=== PATIENT | male | born 2005 | race African-American/Black ===

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

== ENCOUNTER 2025-09-18 06:07 | Emergency (ER) | payer MEDICAID, SELFPAY ==
[2025-09-18 06:26] VITALS: BP 145/73; PULSE 61; RESP 16; TEMP 36.6; O2SAT 100
--- NOTE | 2025-09-18 06:33 | EDNOTE_ITS ---
ED Psych RME/HPI General Chief Complaint: General Adult/Misc Complain Stated Complaint: ANXIOUS , SELF HARMING Time Seen by Provider: 09/18/25 06:27 Arrival date/time: 09/18/25 06:07 RME / HPI RME / HPI Narrative: See [facility] for Dr. Guerrero's HPI documentation. Related Data Previous Rx's ?Medication ?Instructions ?Recorded prednisolone 15 mg/5 mL oral 5 ml PO QAM #30 mL solution ibuprofen 600 mg tablet 600 mg PO TID PRN pain #30 t abs 12/05/21 ibuprofen 600 mg tablet 600 mg PO Q8H PRN pain #20 t abs 11/06/24 alprazolam 0.5 mg tablet (Xanax) 0.5 mg PO BID PRN anx iety #10 tabs 09/18/25 Allergies Allergy/AdvReac Type Severity Reaction Status Date / Time No Known Allergies Allergy Verified 09/18/25 06:25 Review of Systems Review of Systems Systems Reviewed: All systems reviewed, normal except as documented Past Medical History Past Medical History CARDIAC: Negative Congestive Heart Failure RESPIRATORY: Negative Chronic Obstructive Pulmonary Disease (COPD) GENITOURINARY: Negative Renal Disease ENDOCRINE: Negative Diabetes Mellitus Type 1 or Diabetes Mellitus Type 2 PSYCHO/SOCIAL: Positive Anxiety Social History SMOKING STATUS: Never smoker ED Exam Narrative Physical exam: See [facility] for Dr. Guerrero's physical exam documentation. Course Quality Measures none Orders Category Date Time Status EKG (ED ONLY) *Do not use* NOW Care 09/18/25 06:[address] head/brain wo con Stat Exams 09/18/25 06:34 Completed EKG (ED Only) Stat Exams 09/18/25 06:34 Draft XR chest 1V portable Stat Exams 09/18/25 06:34 Completed Acetaminophen Stat Lab 09/18/25 06:49 Completed Alcohol, Blood Medical Stat Lab 09/18/25 06:49 Completed Amylase Stat Lab 09/18/25 06:49 Completed Bilirubin,Direct Stat Lab 09/18/25 06:49 Completed CBC Stat Lab 09/18/25 06:49 Completed CK [Creatine Kinase] Stat Lab 09/18/25 06:49 Completed CMP [Comprehensive Metabolic Panel] Stat Lab 09/18/25 06:49 Completed Drug Screen,Urine Stat Lab 09/18/25 07:01 Completed Lipase Stat Lab 09/18/25 06:49 Completed Magnesium Stat Lab 09/18/25 06:49 Completed Salicylate Stat Lab 09/18/25 06:49 Completed TSH [Thyroid Stimulating Hormone] Stat Lab 09/18/25 06:49 Completed Troponin I Stat Lab 09/18/25 06:49 Completed UA, C/S IF [Urinalysis, C/S if Indicated] Stat Lab 09/18/25 07:01 Completed ALPRazoLAM [Xanax] Med 09/18/25 06:34 Discontinued 0.5 mg PO X1 ONE Ondansetron Odt [Zofran Odt] Med 09/18/25 06:34 Discontinued 4 mg PO X1 ONE 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 Psych MDM Narrative MDM Narrative:: This section includes all my notes and documentations, including HPI, PE, and ED course. Richar Guerrero MD HPI: 20-year-old male here possible anxiety. Just prior to arrival, he was hitting himself on the head. Mom is present. He reports severe anxiety, possibly related to school today. Currently, he reports no thoughts of hurting self or others. No hallucinations. No other complaints. ROS: All negative except as documented in HPI. Physical Exam: General:? Alert and oriented.? No acute distress.? Eyes:? Conjunctivae and lids clear.? EOMI.? PERRL. ENT:? No signs of head trauma. Neck:? Supple.? No tenderness. Heart:? RRR. Lungs:? No respiratory distress.? Good air movement.? No rhonchi, wheezing, rales.? Chest:? No tenderness. Abdomen:? Soft and nontender.? Normal bowel sounds.? No distension.? No rebound or guarding.? Back:? No tenderness.? Skin:? Warm and dry.? Neuro:? Alert and oriented X 3.? Cranial Nerves II-XII grossly intact.? No per ipheral motor deficits. Musculoskeletal:? All major joints and bones are not tender with no limited ROM. I reviewed all diagnostic test results: My interpretation of the EKG is: Sinus rhythm (61 bpm) with early repolarization. My interpretation of the chest x-ray is: NAD. My review of the CT head report is: No acute findings. Blood tests and urine tests are unremarkable except UDS positive for marijuana. At this point, diagnoses include: Anxiety Treatment here included: Oral Xanax 0.5 mg Oral Zofran 4 mg Evaluation by our ED menagerie caretaker (recommended discharge with outpatient car e) Significant improvement noted. Recommended outpatient follow up as recommended by our ED menagerie caretaker. Based on my best medical judgment, made decision no further evaluation or treatment indicated at this time. Patient understands and agrees to the discharge instructions customized and printed, see below. Discharge Instructions from Dr. Guerrero printed for you: 1. After evaluation, you were treated for anxiety. 2. You were evaluated by our ED menagerie caretaker. Please follow-up with their outpatient recommendation. 3. Xanax as needed. Avoid more than 2-3 times per week, to avoid dependence. 4. See a private doctor on 09/20/2025 for recheck and further care. Ask to review all test results and official radiology reports, to make sure you receive all necessary follow-ups and monitoring. 5. Seek immediate medical care with worsening or with any concerns. Richar Guerrero MD Patient data External records reviewed:: [facility] previous records Clinical information provided by:: patient Social determinants that could affect healthcare access:: mental health Patient has the following chronic illnesses:: Anxiety How is presenting disease/condition affected by chronic disease/condition?: ex acerbated by Evaluation data The following diagnostics were reviewed and interpreted by me:: lab results, radiology exam(s) and EKG tracing(s) (My interpretation of the EKG is: Sinus rhythm (61 bpm) with early repolarization. Richar Guerrero MD) Lab and/or radiology exams considered but not ordered:: None Interpretation Summary: I reviewed all diagnostic test results: My interpretation of the EKG is: Sinus rhythm (61 bpm) with early repolarization. My interpretation of the chest x-ray is: NAD. My review of the CT head report is: No acute findings. Blood tests and urine tests are unremarkable except UDS positive for marijuana. Medications / Prescriptions Medications or Prescriptions considered but not ordered:: None Medication administrations:: Medication Administration History Discontinued Medications Alprazolam (Alprazolam 0.25 Mg Tablet) 0.5 mg PO X1 ONE Stop: 09/18/25 06:35 Last Admin: 09/18/25 07:10 Dose: 0.5 mg Documented By: RHETT Ondansetron HCl (Ondansetron Odt 4 Mg Tabrap) 4 mg PO X1 ONE; Protocol Stop: 09/18/25 06:35 Last Admin: 09/18/25 07:11 Dose: 4 mg Documented By: RHETT Treatment here included: Oral Xanax 0.5 mg Oral Zofran 4 mg Evaluation by our ED menagerie caretaker (recommended discharge with outpatient care) Consultations Consultation(s) initiated? (list below): No Diagnosis Psych Differential Diagnosis: acute psychosis, bipolar disorder, depression, drug-induced psychotic disorder and acute anxiety Most likely diagnosis given after review of the tests above:: Anxiety Admission Indicated Admission indicated?: not indicated Explain why admission is indicated or not indicated:: With significant improvement and no condition needing emergent intervention, there was no indication for admission. Admission Request Was there a request for admission?: No Disposition Plan Disposition Plan: Discharge Discharge Attestation Discharge Attestation: The patient and all family members were given an opportunity to ask questions and understood the discharge instructions. Discharge instructions specifically effects, indications for sooner follow up or return to the emergency department, and the expected course of current diagnosis. Patient condition: Stable Discharge Plan Plan Patient Disposition: HOME (Self Care) Prescriptions/Referrals Prescriptions/Med Rec: New alprazolam [Xanax] 0.5 mg tablet 0.5 mg PO BID PRN (Reason: anxiety) Qty: 10 0RF No Action prednisolone 15 MG/5 ML syrup 5 ml PO QAM Qty: 30 0RF ibuprofen 600 mg tablet 600 mg PO TID PRN (Reason: pain) Qty: 30 0RF ibuprofen 600 mg tablet 600 mg PO Q8H PRN (Reason: pain) Qty: 20 0RF Problem List Clinical Impression: Anxiety Patient/Caregiver Discharge Instructions Discharge Activity: activity as tolerated Education Materials: ED Anxiety Reaction Additional Instructions: Discharge Instructions from Dr. Guerrero printed for you: 1. After evaluation, you were treated for anxiety. 2. You were evaluated by our ED menagerie caretaker. Please follow-up with their outpatient recommendation. 3. Xanax as needed. Avoid more than 2-3 times per week, to avoid dependence. 4. See a private doctor on 09/20/2025 for recheck and further care. Ask to review all test results and official radiology reports, to make sure you receive all necessary follow-ups and monitoring. 5. Seek immediate medical care with worsening or with any concerns. Print Language: Mohawk Stand Alone Forms: Sara Award Info., Work/School Release, Patient Portal Info Letter
--- NOTE | 2025-09-18 06:34 | XR_ITS ---
EXAMINATION: PA chest single view TECHNIQUE: Upright PA chest single view Date and time: September 18, 2025, 0639 hours, comparison April 30, 2016 INDICATIONS: Shortness of breath today. FINDINGS: Normal heart size. Lungs are clear. Osseous structures are intact IMPRESSION: No active disease
--- NOTE | 2025-09-18 06:34 | EKG_ITS ---
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
--- NOTE | 2025-09-18 06:34 | XR_ITS ---
Examination: CT brain head without contrast. 2-D sagittal coronal reconstructions Date and time of exam: September 18, 2025, 0754 hours INDICATIONS: Headaches beginning 2 weeks ago CTDI: vol (mGy): 51.9 DLP: (mGycm): 1002 Technique: Multiple CT axial sections of the brain have been obtained, 5 mm slice thickness. Contrast has not been administered. 2-D sagittal, coronal reconstructions have been obtained Low dose protocols were performed. One or more of the following dose reduction techniques were used; automated exposure control, adjustment of the mA and/or KV according to patient size, use of iterative reconstruction technique. Findings: No significant ventricular enlargement. Intra-axial or extra-axial hemorrhage density is not seen. No mass effect or midline shift Basal cisterns are not remarkable. Fourth ventricle is midline. Cranial vault intact. Impression: Negative for acute hemorrhage, mass effect or midline shift Mild chronic ethmoid sphenoid sinusitis Advise clinical correlation and follow-up accordingly
[2025-09-18 06:59] LABS: Basophils # (Auto) 0.0 Thou/mm3 (0.0-0.2); Basophils % (Auto) 0 % (0-2.5); Eosinophils # (Auto) 0.1 Thou/mm3 (0.0-0.5); Eosinophils % (Auto) 2 % (0-10); Hematocrit 41.8 % (41.0-53.0); Hemoglobin 14.0 g/dL (13.5-16.0); Immature Granulocytes Auto 0.01 Thou/mm3 (0.00-0.00); Lymphocytes # (Auto) 2.0 Thou/mm3 (1.0-4.8); Lymphocytes % (Auto) 30 % (10-50); Mean Corpuscular HGB Conc 33.5 g/dl (31.0-37.0); Mean Corpuscular Hemoglobin 29.4 pg (25.0-35.0); Mean Corpuscular Volume 88 fL (80-100); Monocytes # (Auto) 0.6 Thou/mm3 (0.0-0.8); Monocytes % (Auto) 8 % (0-12); Neutrophils # (Auto) 4.1 Thou/mm3 (1.8-7.7); Neutrophils % (Auto) 60 % (37-80); Nucleated Red Blood Cell # 0.00 Thou/mm3 (0.00-0.00); Nucleated Red Blood Cell % 0 /100 WBC (0); Platelet Count 218 Thou/mm3 (140-440); RDW Standard Deviation 40.5 fL (35.1-43.9); Red Blood Count 4.76 Miln/mm3 (4.50-5.90); White Blood Count 6.9 Thou/mm3 (4.5-11.0)
[2025-09-18] MEDS: ONDANSETRON ODT 4 MG TABRAP PO (07:11)
--- NOTE | 2025-09-18 07:15 | PC.NURSE ---
PT PRESENTS TO ED WITH ANXIOUSNESS. 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 THE TEACHER THEN SAID HE WOULD GET A ZERO IF HE DIDNT HAVE A DOCTORS NOTE. PT DENIES ANY SI, HI OR SELF HARM. HE STATED THAT HE WOKE UP FEELING ANXIOUS AND HIS MIND WAS RACING. HE THEN STIMS AND HITS HIMSELF BECAUSE HE FEELS LIKE HE IS GOING TO BURST. HE STATES THATS HOW HE DEALS WITH HIS ANXIETY. I SPOKE WITH HIM ON DIFFERENT COPING SKILLS AND THAT WE CAN HELP HIM FIND RESOURCES TO HELP. TANVI LONDONO IS AWARE AND WILL BE COMING TO TALK TO HIM. PT ALERT AND ORIENTED, NO OTHER COMPLAINTS AT THIS TIME.
[2025-09-18 07:24] LABS: Acetaminophen < 2.0 mcg/mL (10.0-20.0); Alanine Aminotransferase 12 U/L (10-49); Albumin, Serum 5.2 gm/dL (3.5-5.0); Albumin/Globulin Ratio 2.5 (1.2-2.2); Alcohol, Blood Medical < 3.0 mg/dL (0-10.0); Alkaline Phosphatase 55 U/L (46-116); Amylase 93 U/L (30-118); Anion Gap 11 (7-16); Aspartate Amino Transferase 19 U/L (0-34); BUN/Creatinine Ratio 14 Ratio (12-20); Bilirubin,Direct 0.4 mg/dL (0.0-0.3); Bilirubin,Total 1.1 mg/dL (0.3-1.2); Blood Urea Nitrogen 13 mg/dL (9-23); Calcium 10.0 mg/dL (8.3-10.6); Calcium (Corrected) 10.0 mg/dL (8.5-10.1); Carbon Dioxide 25.8 mMol/L (20.0-31.0); Chloride 105 mMol/L (98-107); Creatine Kinase 140 U/L (34-171); Creatinine (Component) 0.9 mg/dL (0.6-1.3); Globulin 2.1 gm/dL (2.3-3.5); Glucose 110 mg/dL (74-106); Lipase 27 U/L (12-53); Magnesium 2.0 mg/dL (1.6-2.6); Osmolality,Calculated 284 (275-295); Potassium 3.9 mMol/L (3.4-5.1); Salicylate < 3.0 mg/dL; Sodium 142 mMol/L (136-145); Thyroid Stimulating Hormone 0.98 uIU/mL (0.55-4.78); Total Protein 7.3 gm/dL (5.7-8.2); Troponin I < 0.002 ng/mL (0.0-0.045); eGFR > 60 See Note
[2025-09-18 07:32] LABS: Collection Type, Urine Clean Catch; Squamous Epithelial Cell,Urine 0 /hpf (0-5)
[2025-09-18 07:48] LABS: Bilirubin,Urine Negative (Negative); Blood,Urine Negative (Negative); Clarity,Urine Clear (Clear/Hazy); Color,Urine Colorless (Lt Yel-Yel); Culture Indicated,Urine Not Indicated; Glucose, Urine Negative (Negative); Ketones,Urine Negative (Negative); Leukocyte Esterase,Urine Negative (Negative); Nitrite,Urine Negative (Negative); PH,Urine 6.5 (5.0-7.0); Protein,Urine Negative (Neg - Trace); RBC,Urine 1 /hpf (0-3); Specific Gravity,Urine 1.011 (1.001-1.035); Urobilinogen,Urine Negative mg/dL (0.0-1.0); WBC,Urine < 1 /hpf (0-5)
[2025-09-18 08:00] LABS: Amphetamine/Methamp Scrn,U Negative (Negative); Barbiturate Screen,Urine Negative (Negative); Benzodiazepines Screen,Urine Negative (Negative); Benzoylecgonine Screen, Ur Negative (Negative); Fentanyl Screen,Urine Negative (Negative); Opiate Screen,Urine Negative (Negative); THC Screen,Urine Positive (Negative)
[2025-09-18 08:38] VITALS: BP 126/70; PULSE 56; RESP 18; TEMP 36.7; O2SAT 98
--- NOTE | 2025-09-18 08:55 | PC.CC ---
[id number] Perez met with patient [id number] to complete assessment. ASW introduced self, role, and reason for assessment. ASW disclosed limits of confidentiality as well. Patient appeared alert and oriented to self, place, and situation. Patient was pleasant; his mood appeared stressed. His behavior appeared calm and willing to engage in conversation. Patient?s thought process was at times linear and organized. No signs of delusions, paranoid or AVH. Pt denies SI/HI, denies h/o MH hospitalization and reports no MH diagnosis. Pt reported that his mother brought him into the ER because of an anxiety attack. Pt reported that he missed an exam and asked his professor for a makeup, which the professor allowed, but wanted a doctors note that proved his anxiety. Pt reported that although he needs the ER note for school, he admitted to wanting theraputic services as well. Pt reports he often has anxiety and will hit himself on his head when he is extremely stressed. Pt reports he understands that the self injurious behavior isn't normal and wants community resources for mental health. ASW provided community resources to [facility] and [facility] resources as well as the [facility]. Pt was receptive and accepted the resources. Pt reports he is willing to attend counseling services. Pt has an appointment at [facility] and will attend. Pt was provided the 988 and Warm Line information as well. Pt is cleared by SS.
== END 2025-09-18 09:05 | disposition home or self-care (01) ==
LOC: SERX 09:06
PROVIDERS: Emergency Provider Emergency Medicine; PCP Nurse Practitioner Women's Health
DX: F41.9 Anxiety disorder, unspecified (principal)
CPT/HCPCS: 36415; 70450; 71045; 80053; 80307; 80320; 80329; 81001; 82150; 82248; 82550; 83690; 83735; 84443; 84484; 85025; 93005; 96127; 99283; Q0162; A9270; G0480

== ENCOUNTER 2025-10-22 22:11 | Emergency (ER) | payer MEDICAID, SELFPAY ==
[2025-10-22 23:39] VITALS: BP 145/77; PULSE 87; RESP 18; TEMP 36.7; O2SAT 99
--- NOTE | 2025-10-22 23:48 | EKG_ITS ---
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
--- NOTE | 2025-10-22 23:48 | XR_ITS ---
EXAMINATION: PA chest single view TECHNIQUE: Upright PA chest single view Date and time: October 22, 2025, 11:51 p.m. INDICATIONS: Chest pain today. FINDINGS: Normal heart size Lungs are clear. Osseous structures are intact Impression: No active disease
[2025-10-23 00:22] LABS: Basophils # (Auto) 0.0 Thou/mm3 (0.0-0.2); Basophils % (Auto) 1 % (0-2.5); Eosinophils # (Auto) 0.3 Thou/mm3 (0.0-0.5); Eosinophils % (Auto) 5 % (0-10); Hematocrit 37.6 % (41.0-53.0); Hemoglobin 12.6 g/dL (13.5-16.0); Immature Granulocytes Auto 0.01 Thou/mm3 (0.00-0.00); Lymphocytes # (Auto) 3.0 Thou/mm3 (1.0-4.8); Lymphocytes % (Auto) 49 % (10-50); Mean Corpuscular HGB Conc 33.5 g/dl (31.0-37.0); Mean Corpuscular Hemoglobin 29.0 pg (25.0-35.0); Mean Corpuscular Volume 87 fL (80-100); Monocytes # (Auto) 0.6 Thou/mm3 (0.0-0.8); Monocytes % (Auto) 10 % (0-12); Neutrophils # (Auto) 2.3 Thou/mm3 (1.8-7.7); Neutrophils % (Auto) 36 % (37-80); Nucleated Red Blood Cell # 0.00 Thou/mm3 (0.00-0.00); Nucleated Red Blood Cell % 0 /100 WBC (0); Platelet Count 203 Thou/mm3 (140-440); RDW Standard Deviation 39.6 fL (35.1-43.9); Red Blood Count 4.34 Miln/mm3 (4.50-5.90); White Blood Count 6.2 Thou/mm3 (4.5-11.0)
[2025-10-23 00:33] LABS: B-Type Natriuretic Peptide < 20 pg/mL (0-100)
[2025-10-23 00:34] LABS: Alanine Aminotransferase 11 U/L (10-49); Albumin, Serum 4.3 gm/dL (3.5-5.0); Albumin/Globulin Ratio 1.7 (1.2-2.2); Alkaline Phosphatase 63 U/L (46-116); Anion Gap 9 (7-16); Aspartate Amino Transferase 17 U/L (0-34); BUN/Creatinine Ratio 10 Ratio (12-20); Bilirubin,Total 0.3 mg/dL (0.3-1.2); Blood Urea Nitrogen 11 mg/dL (9-23); Calcium 8.9 mg/dL (8.3-10.6); Calcium (Corrected) 8.9 mg/dL (8.5-10.1); Carbon Dioxide 26.7 mMol/L (20.0-31.0); Chloride 110 mMol/L (98-107); Creatinine (Component) 1.1 mg/dL (0.6-1.3); Estimated Creatinine Clearance 96.2 mL/min (>60); Globulin 2.5 gm/dL (2.3-3.5); Glucose 91 mg/dL (74-106); Osmolality,Calculated 289 (275-295); Potassium 4.0 mMol/L (3.4-5.1); Sodium 146 mMol/L (136-145); Total Protein 6.8 gm/dL (5.7-8.2); Troponin I < 0.002 ng/mL (0.0-0.045); eGFR > 60 See Note
[2025-10-23 00:34] LABS: Collection Type, Urine Voided; Squamous Epithelial Cell,Urine 0 /hpf (0-5)
[2025-10-23 00:42] LABS: Bilirubin,Urine Negative (Negative); Blood,Urine Negative (Negative); Clarity,Urine Clear (Clear/Hazy); Color,Urine Lt-Yellow (Lt Yel-Yel); Glucose, Urine Negative (Negative); Ketones,Urine Negative (Negative); Leukocyte Esterase,Urine Negative (Negative); Nitrite,Urine Negative (Negative); PH,Urine 6.5 (5.0-7.0); Protein,Urine Negative (Neg - Trace); RBC,Urine 3 /hpf (0-3); Specific Gravity,Urine 1.020 (1.001-1.035); Urobilinogen,Urine Negative mg/dL (0.0-1.0); WBC,Urine < 1 /hpf (0-5)
--- NOTE | 2025-10-23 01:11 | PD.EDCHEST ---
ED Chest Pain RME/HPI General Chief Complaint: Flu Like Symptoms Stated Complaint: CHEST HURTS, COUGH, SOB Time Seen by Provider: 10/22/25 22:17 Arrival date/time: 10/22/25 22:11 This is a case of 20-year-old male with no medical history came in in the emergency room due to productive cough and nasal congestion for 1 week due to persistence of the symptoms now with shortness of breath and wheezing this patient decided to sought consult here in the emergency room Limitations: no limitations Related Data Previous Rx's ?Medication ?Instructions ?Recorded prednisolone 15 mg/5 mL oral 5 ml PO QAM #30 mL 04/30/16 solution ibuprofen 600 mg tablet 600 mg PO TID PRN pain #30 tabs 12/05/21 ibuprofen 600 mg tablet 600 mg PO Q8H PRN pain #20 tabs 11/06/24 alprazolam 0.5 mg tablet (Xanax) 0.5 mg PO BID PRN anxiety #10 tabs 09/18/25 albuterol sulfate 90 mcg/actuation 1 puff inhalation Q4H PRN 10/23/25 aerosol inhaler (Ventolin HFA) shortness of breath or wheezing #8.5 grams azithromycin 250 mg tablet 250 mg PO QDAY 6 days #6 tabs 10/23/25 benzonatate 200 mg capsule 200 mg PO BID PRN cough #20 caps 10/23/25 prednisone 20 mg tablet 20 mg PO QDAY 5 days #5 tabs 10/23/25 Allergies Allergy/AdvReac Type Severity Reaction Status Date / Time No Known Allergies Allergy Verified 09/18/25 06:25 Review of Systems Review of Systems Systems Reviewed: All systems reviewed, normal except as documented Constitutional Constitutional: Reports system reviewed and no additional complaints, except as documented and Reports as per HPI ENT Ears, Nose, Mouth, and Throat: Reports system reviewed and no additional complaints, except as documented and Reports as per HPI Cardiovascular Cardiovascular: Reports system reviewed and no additional complaints, except as documented and Reports as per HPI Respiratory Respiratory: Reports system reviewed and no additional complaints, except as documented and Reports as per HPI Gastrointestinal Gastrointestinal: Reports system reviewed and no additional complaints, except as documented and Reports as per HPI Neurologic Neurologic: Reports system reviewed and no additional complaints, except as documented and Reports as per HPI Past Medical History Past Medical History CARDIAC: Negative Congestive Heart Failure RESPIRATORY: Negative Chronic Obstructive Pulmonary Disease (COPD) GENITOURINARY: Negative Renal Disease ENDOCRINE: Negative Diabetes Mellitus Type 1 or Diabetes Mellitus Type 2 PSYCHO/SOCIAL: Positive Anxiety Social History SMOKING STATUS: Never smoker ED Exam General Limitations: Present no limitations General appearance: Present alert, in no apparent distress and other (Patient is awake alert oriented not in distress nontoxic looking well-hydrated well nourished) Head Head exam: Present atraumatic, normocephalic and normal inspection Eye Eye exam: Present normal appearance, PERRL and EOMI ENT ENT exam: Present normal exam, normal oropharynx, mucous membranes moist and other (HEENT exam is normal and unremarkable) Neck Neck exam: Present normal inspection, full ROM and trachea midline; Absent tenderness, meningismus, lymphadenopathy or thyromegaly Chest Chest inspection: Present normal inspection and symmetric chest wall rise; Absent tenderness Respiratory Respiratory exam: Present normal lung sounds bilaterally and wheezes (Wheezing both lower lung field no crackles no rales no retraction ); Absent respiratory distress, stridor, accessory muscle use or prolonged expiratory phase Cardiovascular Cardiovascular exam: Present regular rate, normal rhythm and normal heart sounds; Absent bradycardia, tachycardia, irregular rhythm, systolic murmur or diastolic murmur Abdominal Exam Abdominal exam: Present soft and normal bowel sounds; Absent distention, tenderness, guarding, rebound, rigidity, diminished bowel sounds, hyperactive bowel sounds, hypoactive bowel sounds or organomegaly Extremities Exam Extremities exam: Present normal inspection and full ROM Back Exam Back exam: Present normal inspection and full ROM Neurological Exam Neurological exam: Present alert, oriented X3, CN II-XII intact, normal gait and reflexes normal; Absent motor sensory deficit Psychiatric Psychiatric exam: Present normal affect and normal mood Skin Skin exam: Present warm, dry, intact, normal color and other (Excellent skin turgor) Course Quality Measures none Orders Category Date Time Status EKG (ED ONLY) *Do not use* NOW Care 10/22/25 23:48 Completed EKG (ED Only) Stat Exams 10/22/25 23:48 Draft XR chest 1V Stat Exams 10/22/25 23:48 Completed BNP [B-Type Natriuretic Peptide] Stat Lab 10/22/25 23:54 Completed CBC Stat Lab 10/22/25 23:54 Completed CMP [Comprehensive Metabolic Panel] Stat Lab 10/22/25 23:54 Completed Troponin I Stat Lab 10/22/25 23:54 Completed Urinalysis Stat Lab 12/22/25 00:05 Completed Albuterol/Ipratr Rt Tara [Duoneb Rt Tara] Med 10/23/25 01:06 Discontinued 3 ml INH X1 ONE dexAMETHasone INJ [Decadron Inj] Med 10/23/25 01:06 Discontinued 10 mg IM X1 ONE Vital Signs Vital signs: Vital Signs Temperature 98.1 F 10/22/25 23:39 Pulse Rate 87 10/22/25 23:39 Respiratory Rate 18 10/22/25 23:39 Blood Pressure 145/77 H 10/22/25 23:39 Pulse Oximetry (%) 99 10/22/25 23:39 Oxygen Delivery Method Room Air 10/22/25 23:39 Oxygen saturation is 99% in room air Chest Pain MDM Narrative MDM Narrative:: This is a case of 20-year-old male with no medical history came in in the emergency room due to productive cough and nasal congestion for 1 week due to persistence of the symptoms now with shortness of breath and wheezing this patient decided to sought consult here in the emergency room physical examination patient is awake alert oriented not in distress nontoxic looking well-hydrated well nourished HEENT exam is normal and unremarkable lung sounds noted wheezing both lower lung field no crackles no rales no retraction no stridor heart normal rate regular rhythm no murmur no pitting edema the rest of the physical examination neurological exam is normal and unremarkable blood test showed no leukocytosis no anemia kidney and liver function is normal no electrolyte imbalance troponin is negative BNP is normal EKG sinus rhythm no ST elevation or depression chest x-ray is normal based on my physical examination and history patient symptoms suggestive of acute bronchitis no signs and symptoms of cardiac pathology not myocardial infarction or pulmonary embolism patient after giving breathing treatment steroid patient condition markedly improved and resolved wheezing resolved patient will follow-up with PCP in 2 days for reevaluation and to be referred to manual writer for chest pain for possible echocardiogram stress test and Holter monitor Patient was discharged with comfortable condition walking with stable gait. Patient verbalized no further complains explained diagnosis and answered patient question. Patient is comfortable with the proposed management plan including the need to follow up with his/her primary care physician and any specialist if applicable Discussed patient for any urgent condition or worsening sx, He/She needed to go to emergency room immediately or call 911. Patient acknowledge the responsibility to follow up as instructed and to monitor her/his symptoms. For any persistence of the symptoms for more than 3-5 days return precaution advised. Discussed the result of the test and was given printed discharge instruction Patient data External records reviewed:: [facility] previous records Clinical information provided by:: patient Social determinants that could affect healthcare access:: none Patient has the following chronic illnesses:: None How is presenting disease/condition affected by chronic disease/condition?: no chronic disease Evaluation data The following diagnostics were reviewed and interpreted by me:: lab results, radiology exam(s) and EKG tracing(s) Lab and/or radiology exams considered but not ordered:: Reviewed Interpretation Summary: Reviewed Medications / Prescriptions Medications or Prescriptions considered but not ordered:: Given Medication administrations:: Medication Administration History Discontinued Medications Albuterol/Ipratropium (Albuterol/Ipratropium (Duoneb) Rt Tara 3 Ml Nebu) 3 ml INH X1 ONE Stop: 10/23/25 01:07 Dexamethasone Sodium Phosphate (Dexamethasone Sod Phos Inj 10 Mg/Ml Vial) 10 mg IM X1 ONE Stop: 10/23/25 01:07 Given Consultations Consultation(s) initiated? (list below): No Diagnosis Chest Pain Differential Diagnosis: atypical chest pain, costochondritis, chest pain and other (Asthma bronchitis) Most likely diagnosis given after review of the tests above:: Acute bronchitis Admission Indicated Admission indicated?: not indicated Explain why admission is indicated or not indicated:: Not indicated Admission Request Was there a request for admission?: No Admission Attestation Admission request attestation: Not indicated Disposition Plan Disposition Plan: Discharge Discharge Attestation Discharge Attestation: The patient and all family members were given an opportunity to ask questions and understood the discharge instructions. Discharge instructions specifically effects, indications for sooner follow up or return to the emergency department, and the expected course of current diagnosis. Patient condition: Stable Discharge Plan Plan Patient Disposition: HOME (Self Care) Patient condition on transfer: Stable Prescriptions/Referrals Prescriptions/Med Rec: New azithromycin 250 mg tablet 250 mg PO QDAY 6 Days Qty: 6 0RF Rx Instructions: start on day 2 of therapy benzonatate 200 mg capsule 200 mg PO BID PRN (Reason: cough) Qty: 20 0RF prednisone 20 mg tablet 20 mg PO QDAY 5 Days Qty: 5 0RF Taper: Prednisone Taper 20 mg DAILY for 2 Days and 0 Hour 10 mg DAILY for 2 Days and 0 Hour 5 mg DAILY for 7 Days and 0 Hour albuterol sulfate [Ventolin HFA] 90 mcg/actuation HFA aerosol inhaler 1 puff inhalation Q4H PRN (Reason: shortness of breath or wheezing) Qty: 8.5 0RF Rx Instructions: Please give No Action prednisolone 15 MG/5 ML syrup 5 ml PO QAM Qty: 30 0RF ibuprofen 600 mg tablet 600 mg PO TID PRN (Reason: pain) Qty: 30 0RF ibuprofen 600 mg tablet 600 mg PO Q8H PRN (Reason: pain) Qty: 20 0RF alprazolam [Xanax] 0.5 mg tablet 0.5 mg PO BID PRN (Reason: anxiety) Qty: 10 0RF Referrals: Gautam Del Valle MD [Primary Care Provider, Family Practice] - In 1 week Problem List Clinical Impression: Chest pain of unknown etiology, Acute bronchitis Patient/Caregiver Discharge Instructions Education Materials: Acute Bronchitis, ED Chest Pain, Uncertain Cause Additional Instructions: Follow-up with your primary care physician in 2 days for reevaluation and to be referred to manual writer for further evaluation and treatment of chest pain for possible echocardiogram stress test and Holter monitor recurrence persistent worsening symptoms or any emergent concern call 911 or go to the nearest emergency room take your medication as directed finish the course of antibiotic increase water intake keep hydrated is advised Print Language: Citizen [place] Stand Alone Forms: Sara Award Info., Patient Portal Info Letter PA/[employer] Supervising Physician RUDDY/TANVI Supervising Physician: Dr. Harper
[2025-10-23 01:36] VITALS: PULSE 71; RESP 18; O2SAT 98
[2025-10-23] MEDS: ALBUTEROL/IPRATROPIUM (Duoneb) RT SOL 3 ML NEBU INH (01:36)
== END 2025-10-23 01:42 | disposition home or self-care (01) ==
PROVIDERS: Nurse Practitioner Family; Emergency Provider Emergency Medicine; PCP Family Medicine
DX: J20.9 Acute bronchitis, unspecified (principal); R07.9 Chest pain, unspecified; I49.8 Other specified cardiac arrhythmias
CPT/HCPCS: 36415; 71045; 80053; 81001; 83880; 84484; 85025; 93005; 94640; 96372; 99284; A9270; J1100